=== PATIENT | male | born 1970 | race African-American/Black ===

== ENCOUNTER 2017-08-11 19:10 | Emergency (ER) | payer OTHER ==
[~2017-08-11] VITALS: Ht 175.3 cm; Wt 79.4 kg
[2017-08-11 19:33] VITALS: BP 142/91
[2017-08-11] MEDS ORDERED: PENICILLIN V P500 MG PO ×2 (19:45→19:47)
[2017-08-11] MEDS ORDERED: NORCO 10-325 T1 EACH PO ×2 (19:45→19:47)
[2017-08-11] MEDS ORDERED: CYCLOBENZAPRINE5 MG PO (20:05)
[2017-08-11] MEDS ORDERED: DOCUSATE SODIU100 MG PO (20:05)
== END 2017-08-11 20:12 | disposition home or self-care (01) ==
LOC: ER 19:10
DX: K04.7 Periapical abscess without sinus (principal); Z88.6 Allergy status to analgesic agent; Z88.8 Allergy status to other drugs, medicaments and biological substances